=== PATIENT | female | born 1965 | race Caucasian/White ===

== ENCOUNTER 2021-12-13 09:32 | Outpatient (CLI) | payer OTHER, SELFPAY ==
--- NOTE | ~2021-12-13 | MM_ITS ---
EXAMINATION: MM screening yvonne BI w gabriel HISTORY: Screening mammogram TECHNIQUE: Craniocaudal and mediolateral oblique 3-D tomosynthesis images were obtained and synthetic 2-D images were generated. CAD analysis was submitted and interpreted. COMPARISON: No prior mammogram is available for comparison at this institution. BREAST PARENCHYMAL COMPOSITION: The breasts are heterogeneously dense, which may obscure small masses . FINDINGS: There is no suspicious mass, calcification, or architectural distortion to suggest malignan cy in either breast. IMPRESSION: 1. No mammographic evidence of malignancy. 2. Recommend routine screening mammography in one year. BI-RADS Category 1: Negative Reviewed, dictated and finalized at location A.
== END 2021-12-13 09:33 | disposition home or self-care (01) ==
LOC: ANHIMG 09:34
PROVIDERS: Visit Provider Physician Assistant
DX: Z12.31 Encounter for screening mammogram for malignant neoplasm of breast (principal)
CPT/HCPCS: 77063; 77067

== ENCOUNTER 2022-05-06 18:20 | Emergency (ER) | payer OTHER, SELFPAY ==
[2022-05-06 18:28] VITALS: BP 124/80; PULSE 72; RESP 20; TEMP 36.8; O2SAT 100
--- NOTE | 2022-05-06 18:33 | ED.SKABFB ---
HPI - Skin/Abscess/Foreign Bdy General Chief complaint: Skin/Abscess/Foreign Body Stated complaint: Rash Source: patient Mode of arrival: ambulatory Limitations: no limitations History of Present Illness HPI narrative: This is a 56 year old that has a fine rash that stated this evening and it is itching on her abdomen going up her chest wall and under her bilateral arms. Patient thinks it may be due to her daughter came over today with her dog and she is allergic to dogs. MD complaint: rash Related Data Home Medications Medication Instructions Recorded Confirmed fluticasone propionate 50 2 spray intranasal DAILY 05/06/22 05/06/22 mcg/actuation nasal spray,suspension Allergies Allergy/AdvReac Type Severity Reaction Status Date / Time morphine AdvReac Intermediate Nausea and Verified 05/06/22 18:42 Vomiting Review of Systems Review of Systems: rash on abdomen , under her bilateral arm fine rash Exam Narrative: neuro Alert and orientented ENT nares clear, membranes moist resp no resp distress, ease of rise and fall of chest walker skin fine rash erythema on abdomen, chest wall , bilateral underarms pt itching extremity wnl range of motion Course Course Level of Care: Express Care Visit Vital Signs Vital signs: Vital Signs Temperature 98.3 F 05/06/22 18:28 Pulse Rate 72 05/06/22 18:28 Respiratory Rate 20 05/06/22 18:28 Blood Pressure 124/80 05/06/22 18:28 Pulse Oximetry 100 05/06/22 18:28 Oxygen Delivery Room Air 05/06/22 18:28 Temperature 98.3 F 05/06/22 18:28 Pulse Rate 72 05/06/22 18:28 Respiratory Rate 20 05/06/22 18:28 Blood Pressure 124/80 05/06/22 18:28 Pulse Oximetry 100 05/06/22 18:28 Oxygen Delivery Room Air 05/06/22 18:28 Discharge Plan Discharge Clinical Impression: Contact dermatitis, Urticaria Patient Disposition: Home, Self-Care Condition: Stable Instructions: Antibiotic Form, Contact Dermatitis (DC), Urticaria (ED) Additional Instructions: use skin creams/lotion, such as those containing calamine or pramoxine to reduce itchiness Avoid scratching when possible to prevent worsening of the condition and disruption of the skin that could lead to bacterial infection To relieve itching, place a cool washcloth or some ice over the area that itches, rather than scratching Return to the office or seek ER visit if condition is not improving or worsens with fever, swelling, difficulty breathing or swallowing. Prescriptions: New methylprednisolone [Medrol (James)] 4 mg tablets,dose pack See Rx Instructions .ROUTE .COMPLEX Qty: 21 0RF Rx Instructions: orally per package directions hydrocortisone 1 % ointment 1 applic topical BID PRN (Reason: allergic reaction) Qty: 28.35 0RF No Action fluticasone propionate 50 mcg/actuation spray,suspension 2 spray INTRANASAL DAILY Follow-up/Referrals: PHYSICIAN,[employer] [Primary Care Provider] - Time of Disposition: 18:47
== END 2022-05-06 18:50 | disposition home or self-care (01) ==
PROVIDERS: Emergency Provider Nurse Practitioner Family
DX: L25.9 Unspecified contact dermatitis, unspecified cause (principal); L50.9 Urticaria, unspecified
CPT/HCPCS: 99213; G0463